=== PATIENT | female | born 1990 ===

== ENCOUNTER 2016-10-02 11:41 | Day surgery (SDC) | payer OTHER ==
[2016-10-02 11:53] VITALS: BMI 26.2
[2016-10-02 12:16] LABS: HEMATOCRIT 38.1 % (34.0-47.0); MEAN CELL VOLUME 81.7 fl (81.0-99.0); MEAN CORPUSCULAR HEMOGLOBIN 27.9 pg (27.0-31.0); MEAN CORPUSCULAR HGB CONC 34.1 g/dL (33.0-37.0); RED CELL DISTRIBUTION WIDTH 12.9 % (11.5-14.5); WHITE BLOOD COUNT 6.3 K/uL (4.8-10.8)
[2016-10-02] MEDS ORDERED: Doxycycline 100 mg Inj ONE (12:51)
[2016-10-02] MEDS ORDERED: Midazolam 2 MG/2 ML VIAL ONE (12:53)
[2016-10-02] MEDS ORDERED: Propofol 10 mg/ml Inj (20 ML) ONE ×2 (12:53→13:07)
[2016-10-02] MEDS ORDERED: Dexamethasone 4 mg/1 ml ONE (13:25)
[2016-10-02] MEDS ORDERED: Lactated Ringer's 1,000 ML IV SCH (13:30)
--- NOTE | 2016-10-02 13:50 | CP.SDSHP ---
Same Day Surgery H & P - History Proposed Procedure: SUction D&C Pre-Op Diagnosis: Missed - Allergies Allergies: Allergies No Known Allergies Allergy (Verified 10/02/16 11:52) - Physical Exam Neuro: WNL Heart: WNL Lungs: WNL GI: WNL - {Optional Preform as Required} Abdomen: WNL Rectal: WNL Integument: WNL GIFT WRAPPER: WNL : WNL Ortho: WNL ENT: WNL - Impression Pt. Evaluated Today:Candidate for Anesthesia & Procedure: Yes - Date & Time Date: 10/02/16 Time: 12:45 Short Stay Discharge - Short Stay Discharge Admitting Diagnosis/Reason for Visit: O02.1 Disposition: HOME/ ROUTINE Referrals: FAMILY PROVIDER,NO [Primary Care Provider] - Follow-up: F/U in 2 wks in office
[2016-10-02] MEDS ORDERED: Oxycodone/Acetaminophen 5/325 mg Tab PO PRN (13:53)
--- NOTE | 2016-10-03 15:03 | OP ---
PROCEDURE DATE: 10/02/2016 SURGEON: Dr. Oseguera. PREOPERATIVE DIAGNOSIS: Missed . PROCEDURE: Suction D and C. POSTOPERATIVE DIAGNOSIS: Missed . FINDINGS: Anteverted 6-week uterus with products of conception noted. ANESTHESIA: LMA by Dr. Park. ESTIMATED BLOOD LOSS: 100 mL. COMPLICATIONS: None. CONDITION: Stable. URINE OUTPUT: 25 mL. TOTAL FLUID INPUT: 500 mL LR. PATHOLOGY SPECIMEN: Products of conception. CONDITION: Stable. COMPLICATIONS: None. INDICATIONS: This is a 26-year-old, G1, P0 at over 9 weeks by LMP who was found to be measuring almo st 6 weeks by an ultrasound done in the office with no cardiac activity, only a gestational sac seen. The patient was advised at this point it looked to be a missed . The patient was advised o f risks and benefits of surgical management versus medical management versus expected management. Th e patient elected to proceed with surgical management for definitive treatment. Advised of risks and benefits of the procedure. The procedure was scheduled to be done at the hospital. The patient pre sented in periop. IV was started and the patient was consented by anesthesia and when the OR was david dy, we proceeded for the procedure. PROCEDURE: The patient was taken to the OR, IV fluids were running, doxycycline was given preoperati vely. [facility] and [facility]pped and draped in normal sterile fash ion. Under anesthesia, she was found to have about a 6-week anteverted uterus. A weighted speculum was placed in the posterior fornix. A Trey was used to expose the anterior lip of the cervix, whic h was grasped with a single tooth tenaculum. A red rubber tip catheter was used to drain her bladder which we were able to drain about 25 mL of clear urine. The [employer] cervical dilator up to about 14 w as used to dilate the patient's cervical os and then a 7 [place] tip curved suction tubing was passed through the os. The suction device was turned on and the products of conception were evacuated. The suction tubing was rotated in a clockwise and then counterclockwise fashion and it was passed multip le times through the os in order to evacuate all products of conception. Then, sharp curettage was u sed in order to obtain a gritty texture along the endometrial cavity in order to ensure that all prod ucts of conception had been adequately evacuated. Once again, the suction tubing was placed in order to ensure that all products have been removed from the endometrial cavity. Once it was ensured that all products have been removed, all instruments were removed from the vagina and the procedure was t erminated. The patient had minimal bleeding from the os. The patient was cleaned and awoken from an esthesia without difficulty. The products were sent to pathology. The patient was given instruction s to follow up in the office in 2 weeks for followup. The patient was Rh positive, no need for RhoGA M. The patient was given a prescription for 5 tabs of Percocet. There were no other complications. Iva Oseguera MD cc: [id number] TT: 10/03/2016 15:02:39 rn
[2016-10-04 15:32] VITALS: RESP 18; O2SAT 100
[2016-10-04 15:41] VITALS: BP 112/67; PULSE 78; TEMP 97.4
== END 2016-10-02 16:55 | disposition home or self-care (01) ==
LOC: H.OPSURG 11:41
PROVIDERS: ATTEND Obstetrics & Gynecology
DX: O02.1 Missed abortion (principal)